=== PATIENT | female | born 1985 | race Caucasian/White ===

== ENCOUNTER 2023-02-01 08:49 | Emergency (ER) | payer BC ==
[~2023-02-01] VITALS: Ht 177.8 cm; Wt 131.8 kg
[2023-02-01] MEDS ORDERED: NORCO 325 MG-51 TAB PO ×2 (11:35)
[2023-02-01] MEDS ORDERED: CEPHALEXIN500 M1 PO (11:35)
[2023-02-01] MEDS ORDERED: PERCOCET 325 MG1 TA2 PO (11:38)
[2023-02-01] MEDS ORDERED: PHENERGAN 25 TA25 MG PO (11:40)
[2023-02-01 12:09] VITALS: BP 130/80; PULSE 85; TEMP 98.5
== END 2023-02-01 12:09 | disposition home or self-care (01) ==
LOC: COL.ER 08:49
DX: S67.21XA Crushing injury of right hand, initial encounter (principal); Z91.040 Latex allergy status; W23.0XXA Caught, crushed, jammed, or pinched between moving objects, initial encounter
CPT/HCPCS: J2270; J2405